=== PATIENT | male | born 1985 | race African-American/Black ===

== ENCOUNTER 2023-08-16 21:13 | Emergency (ER) | payer MEDICAID, OTHER ==
[~2023-08-16] VITALS: Ht 170.2 cm; Wt 85.0 kg
[2023-08-16 21:23] VITALS: BP 134/92; PULSE 92; RESP 16; TEMP 98.7; O2SAT 98
[2023-08-16] MEDS ORDERED: BACITRACIN ZINC OINT UDPKT TOP ONE (21:45)
[2023-08-16] MEDS ORDERED: BACITRACIN ZINC OINT UDPKT TOP NR (21:45)
[2023-08-16] MEDS ORDERED: LIDOCAINE HCL/PF 1% 10 MG/ML 5ML VIAL INFIL ONE (21:45)
[2023-08-16] MEDS ORDERED: TETANUS, DIPHTHERIA, PERTUSSIS VAC/PF 0.5ML (>10YR OLD) IM ONE ×2 (21:45→23:30)
[2023-08-16] MEDS ORDERED: BO1 TP (23:45)
== END 2023-08-17 00:13 | disposition home or self-care (01) ==
LOC: ER 21:13
DX: S51.812A Laceration without foreign body of left forearm, initial encounter (principal); X58.XXXA Exposure to other specified factors, initial encounter; Y93.89 Activity, other specified; Y92.89 Other specified places as the place of occurrence of the external cause; Y99.8 Other external cause status
CPT/HCPCS: 90715; 12002; 99283; 90471; J3490; Z7610